=== PATIENT | male | born 1955 ===

== ENCOUNTER 2017-12-23 09:55 | Day surgery (SDC) | payer OTHER ==
[~2017-12-23 09:55] MED LIST: Buffered Lidocaine 0.9% SYRIN* 5 ML/SYR SYRINGE INTRADERM ONE; Sodium Citrate/Citric Acid* 15 ML UDC PO ONE
[2017-12-23] MEDS ORDERED: ceFAZolin 2 GM PREMIX (*) 2 GM/50 ML BAG IVPB ONE (10:10)
[2017-12-23] MEDS ORDERED: Sodium Citrate/Citric Acid* 15 ML UDC ONE (10:10)
[2017-12-23] MEDS ORDERED: Bupivacaine 0.25% SDV* 30 ML ONE (11:04)
[2017-12-23] MEDS ORDERED: Lidocaine 2% PF * 5 ML VIAL ONE (11:05)
[2017-12-23] MEDS ORDERED: Propofol* 10 MG/ML 20 ML BTL IV PUSH ONE (11:05)
[2017-12-23] MEDS ORDERED: Naloxone* 0.4 MG/ML 1 ML VIAL IV PRN (11:08)
[2017-12-23] MEDS ORDERED: fentaNYL* 50 MCG/ML 2 ML VIAL (100 MCG VIAL) ONE ×2 (11:59→12:44)
[2017-12-23] MEDS ORDERED: Ketorolac INJ* 30 MG/ML 1 ML VIAL ONE (12:45)
[2017-12-23 13:09] VITALS: BP 155/96
--- NOTE | 2017-12-26 16:51 | OP ---
OPERATIVE REPORT: DATE OF OPERATION: 12/23/17 DATE OF : 59 SURGEON: Marcos Pope MD DECATIZER: MARÍA ELENA Rodrigues ANESTHESIOLOGIST: Dr. Tolentino ANESTHESIA: Local MAC converted to general. An customer support assistant was needed for the procedure to aid in positioning the arm and providing countertraction. PRE-OP DIAGNOSIS: Protruding right ulna intramedullary elastic nail. POST-OP DIAGNOSIS: Protruding right ulna intramedullary elastic nail. OPERATIVE PROCEDURE: Removal of right ulna intramedullary elastic nail. INDICATIONS: Cheryl is an inmate here. He [place]amedullary [place]. The nail had backed up over time and protruding out the posterior elbow. It is symptomatic, very painful. We talked about risks and benefits including risk of fracture. He wanted to proceed. FINDINGS: As expected. ESTIMATED BLOOD LOSS: 2 mL. COMPLICATIONS: None. DESCRIPTION OF PROCEDURE: Cheryl was seen in the preoperative holding area. The correct side, site, and procedure were identified. We came back to the operating room where the arm was prepped and draped in the usual fashion. A time-out was performed. I began by making a 1-cm incision over the nail. I had infiltrated the operative area with 0.25% Marcaine prior to making the incision and prior to induction of anesthesia, the tourniquet had been inflated to 250 mmHg. The soft tissue was mobilized about the nail. A pair of vice admissions manager rn were applied onto the nail. I attempted to back out the nail; however, this was completely stuck. He was quite agitated and not responding with the anesthesia and converted into general anesthetic. I went ahead and then extended my incision proximally and distally for a total of about 4 cm. Dissection was carried down. The distal triceps tendon was preserved. The soft tissue about the exit point of the nail was debrided. An osteotome was used to free up the bony attachment where the nail was seated in the ulna. I then was able to apply a pair of vice admissions manager rn and rotate the nail until it broke free any bony adhesions. I would not come out with the mallet and vice admissions manager rn, so I went ahead and rotated it and I slowly backed it until it finally came free and came out in its entirety. Mini C-arm was used to confirm it. The ulna was intact and there was no fracture or bony injury. Everything looked good. So, we irrigated out the wound. The skin was closed with 4-0 nylon suture. The wound was dressed with Xeroform, 4x4, sterile Webril, and a long arm splint with the elbow in 30 degrees of flexion was applied to take off the tension off the wound and allow for the wound healing. Tourniquet was deflated during dressing placement. He was taken to the recovery room in stable condition. [id number]/[facility] #: [id number] RACHELE
--- NOTE | 2017-12-27 12:33 | RAD ---
INDICATION: Right wrist, right forearm pain COMPARISONS: Chair June 23, 2018 TECHNIQUE: Fluoroscopy was provided for a surgical procedure. Total fluoroscopy time is: 12 seconds FINDINGS: Spot images are submitted of the right forearm and wrist. There has been interval removal of a internal fixation device of the ulna. IMPRESSION: FLUOROSCOPY WAS PROVIDED FOR A SURGICAL PROCEDURE CPT II Codes: 6045F
== END 2017-12-23 13:35 | disposition home or self-care (01) ==
LOC: OREAST 09:55
PROVIDERS: ATTEND Orthopaedic Surgery Hand Surgery
DX: T84.84XA Pain due to internal orthopedic prosthetic devices, implants and grafts, initial encounter (principal); F17.210 Nicotine dependence, cigarettes, uncomplicated
CPT/HCPCS: 76000; 88300; A9270-GY; J0690; J1885; J2704; J3010